=== PATIENT | male | born 1995 | race African-American/Black ===

== ENCOUNTER 2018-11-06 22:41 | Emergency (ER) | payer SELFPAY ==
[~2018-11-06] VITALS: Ht 190.5 cm; Wt 72.6 kg
[2018-11-06 22:52] VITALS: BP 146/78
== END 2018-11-07 01:34 | disposition left against medical advice (07) ==
LOC: ER 22:41
DX: T78.40XA Allergy, unspecified, initial encounter (principal); Z53.21 Procedure and treatment not carried out due to patient leaving prior to being seen by health care provider; X58.XXXA Exposure to other specified factors, initial encounter

== ENCOUNTER 2021-07-08 12:42 | Emergency (ER) | payer SELFPAY ==
[~2021-07-08] VITALS: Ht 160 cm; Wt 77.1 kg
[2021-07-08 12:46] VITALS: BP 149/109
== END 2021-07-08 21:45 | disposition left against medical advice (07) ==
LOC: ER 12:42
DX: R50.9 Fever, unspecified (principal); M79.10 Myalgia, unspecified site; Z20.822 Contact with and (suspected) exposure to COVID-19
CPT/HCPCS: 36415; 87426